=== PATIENT | female | born 1975 | race Caucasian/White ===

== ENCOUNTER 2022-03-23 04:58 | Emergency (ER) | payer MEDICARE, MEDICAID ==
[2022-03-23 06:07] LABS: ALT (SGPT) 25 U/L (8-55); Albumin 3.4 g/dL (3.5-5.0); Alkaline Phosphatase 124 U/L (40-110); Anion Gap 18 mmol/L (10-20); BUN (Urea Nitrogen) 9 mg/dL (7.0-18.7); Bilirubin, Total 0.7 mg/dL (0.2-1.2); Calc. Creatinine Clearance 0 mL/min (70-130); Calcium 8.6 mg/dL (7.8-10.44); Carbon Dioxide 23 mmol/L (22-29); Chloride 103 mmol/L (98-107); Estimated GFR 95; Globulin 3.8 g/dL (2.4-3.5); Glucose 111 mg/dL (70-105); Potassium 4.5 mmol/L (3.5-5.1); Protein, Total 7.2 g/dL (6.0-8.3); Sodium 139 mmol/L (136-145)
[2022-03-23 06:18] LABS: Band 1 % (5-11); Eosinophils 3 % (0-10); Hemoglobin 12.9 g/dL (12.0-16.0); Lymphocytes 8 % (21-51); MDiff Complete? YES; Mean Corpuscular HGB CONC 31.5 g/dL (32.0-36.0); Mean Corpuscular Hemoglobin 27.9 pg (27.0-31.0); Mean Corpuscular Volume 88.6 fL (78.0-98.0); Mean Platelet Volume 9.2 fL (7.4-10.4); Monocytes 3 % (0-10); Neutrophil 85 % (42-75); Platelet Count 189 thou/uL (130-400); RBC Distribution Width 13.7 % (11.5-14.5); Red Blood Cell (RBC) Count 4.63 mill/uL (4.20-5.40); White Blood Cell (WBC) Count 10.9 thou/uL (4.8-10.8)
[2022-03-23 06:31] LABS: AST (SGOT) 39 U/L (5-34)
[2022-03-23] MEDS ORDERED: Acetaminophen 500 MG TAB ONE (06:50)
[2022-03-23] MEDS ORDERED: Ketorolac Tromethamine 30 MG/ML VIAL ONE (07:19)
[2022-03-23 07:31] LABS: SARS-CoV-2 NAA Rapid Test Not Detected (NotDetected)
[2022-03-23] MEDS ORDERED: Cephalexin 500 MG CAP ONE (07:59)
[2022-03-23 08:13] LABS: Lactic Acid 1.5 mmol/L (0.5-2.2)
== END 2022-03-23 09:22 | disposition home or self-care (01) ==
LOC: MADERS 04:58
DX: L03.115 Cellulitis of right lower limb (principal); J06.9 Acute upper respiratory infection, unspecified; R50.9 Fever, unspecified; Z20.822 Contact with and (suspected) exposure to COVID-19
CPT/HCPCS: 80053; 83605; 85025; 86140; 87040; 96372; J1885

== ENCOUNTER 2022-04-30 20:36 | Emergency (ER) | payer MEDICARE, MEDICAID ==
[2022-04-30 22:22] LABS: Hemoglobin 12.7 g/dL (12.0-16.0); Lymphocytes 36 % (21-51); MDiff Complete? YES; Mean Corpuscular HGB CONC 29.8 g/dL (32.0-36.0); Mean Corpuscular Hemoglobin 26.9 pg (27.0-31.0); Mean Corpuscular Volume 90.3 fL (78.0-98.0); Mean Platelet Volume 9.5 fL (7.4-10.4); Monocytes 3 % (0-10); Neutrophil 61 % (42-75); Platelet Clumps SLIGHT; Platelet Count 206 thou/uL (130-400); Platelet Morphology Comment Appears Adequate; RBC Distribution Width 14.8 % (11.5-14.5); RBC Morphology Normal; Red Blood Cell (RBC) Count 4.73 mill/uL (4.20-5.40); White Blood Cell (WBC) Count 6.7 thou/uL (4.8-10.8)
[2022-04-30] MEDS ORDERED: Ketorolac Tromethamine 60 MG/2 ML VIAL ONE (22:24)
[2022-04-30 22:32] LABS: Bilirubin Negative (Negative); Blood, Urine Trace (Negative); Clarity Clear (Clear); Glucose, Urine (Dipstick) Negative (Negative); Ketone, Urine Negative (Negative); Leukocyte Small (Negative); Nitrite Positive (Negative); Protein, Urine (Dipstick) Negative (Neg-Trace); Specific Gravity, Urine 1.025 (1.005-1.030); pH, Urine 5.5 (5.0-9.0)
[2022-04-30 22:39] LABS: Anion Gap 14 mmol/L (10-20); BUN (Urea Nitrogen) 14 mg/dL (7.0-18.7); CK (CPK) 73 U/L (29-168); Calc. Creatinine Clearance 0 mL/min (70-130); Calcium 8.7 mg/dL (7.8-10.44); Carbon Dioxide 23 mmol/L (22-29); Chloride 106 mmol/L (98-107); Estimated GFR 107; Glucose 83 mg/dL (70-105); Sodium 139 mmol/L (136-145)
[2022-04-30 22:46] LABS: Bacteria/HPF 3+ HPF (None Seen); RBC/HPF 0-3 HPF (0-3); Transitional Epithelial 0-3 HPF (None Seen); WBC/HPF 0-3 HPF (0-3)
[2022-04-30 22:47] LABS: Calcium Oxalate Crystals 2+ HPF (None Seen)
== END 2022-04-30 23:29 | disposition home or self-care (01) ==
LOC: MADERS 20:36
DX: B34.9 Viral infection, unspecified (principal); E03.9 Hypothyroidism, unspecified; H91.3 Deaf nonspeaking, not elsewhere classified; Z79.899 Other long term (current) drug therapy
CPT/HCPCS: 71045; 72170; 80048; 81003; 81015; 82550; 85025; 85379; 87804; 96372; J1885